=== PATIENT | female | born 1945 | race African-American/Black ===

== ENCOUNTER 2024-05-13 10:38 | Emergency (ER) | payer BC ==
[~2024-05-13] VITALS: Ht 170.2 cm; Wt 75.0 kg
[2024-05-13 10:55] VITALS: O2SAT 98
[2024-05-13 11:30] LABS: CLARITY URINE CLEAR (CLEAR); COLOR URINE YELLOW (YELLOW); GLUCOSE URINE NEGATIVE (NEGATIVE); KETONES URINE NEGATIVE (NEGATIVE); LEUKOCYTE ESTERASE URINE NEGATIVE (NEGATIVE); NITRITE URINE NEGATIVE (NEGATIVE); OCCULT BLOOD URINE NEGATIVE (NEGATIVE); PH URINE 6.5 (4.5-8.0); PROTEIN URINE NEGATIVE (NEGATIVE); SPECIFIC GRAVITY URINE 1.025 (1.005-1.030)
[2024-05-13] MEDS ORDERED: ESTR42.510 VG (15:49)
[2024-05-13 16:12] VITALS: BP 112/65; PULSE 74; RESP 18; O2SAT 98
== END 2024-05-13 16:13 | disposition home or self-care (01) ==
LOC: ER 10:38
DX: N95.2 Postmenopausal atrophic vaginitis (principal); I10 Essential (primary) hypertension
CPT/HCPCS: 81003; 99283; A4606

== ENCOUNTER 2025-01-13 03:41 | Emergency (ER) | payer BC ==
[~2025-01-13] VITALS: Ht 172.7 cm; Wt 85.0 kg
[~2025-01-13 03:41] MED LIST: ESTR42.510 VG
[2025-01-13 03:52] VITALS: O2SAT 100
[2025-01-13] MEDS: ACETAMINOPHEN 325MG TABLET PO ONE (05:30)
[2025-01-13 05:49] LABS: BASOPHILS % 1.2 % (0.0-2.0); EOSINOPHILS % 4.1 % (0.0-5.0); HEMATOCRIT. 43.3 % (36.0-48.0); HEMOGLOBIN. 14.5 g/dL (12.0-16.0); LYMPHOCYTES % 31.9 % (20.0-50.0); MEAN PLATELET VOLUME 7.2 fl (7.4-10.4); MONOCYTES % 8.8 % (2.0-8.0); NEUTROPHILS % 54.0 % (40.0-76.0); PLATELET 396 x1000/uL (130-400); RED BLOOD CELL COUNT 5.26 mill/uL (4.2-5.4); RED CELL DISTRIBUTION WIDTH 14.2 % (11.6-14.6)
[2025-01-13 05:55] LABS: CREATININE 0.7 mg/dL (0.6-1.0); UREA NITROGEN BLOOD 8 mg/dL (9-23)
[2025-01-13 06:23] LABS: CLARITY URINE CLEAR (CLEAR); COLOR URINE YELLOW (YELLOW); GLUCOSE URINE NEGATIVE (NEGATIVE); KETONES URINE NEGATIVE (NEGATIVE); LEUKOCYTE ESTERASE URINE NEGATIVE (NEGATIVE); NITRITE URINE NEGATIVE (NEGATIVE); OCCULT BLOOD URINE NEGATIVE (NEGATIVE); PH URINE 6.5 (4.5-8.0); PROTEIN URINE NEGATIVE (NEGATIVE); SPECIFIC GRAVITY URINE 1.004 (1.005-1.030); UROBILINOGEN URINE 0.2 E.U./dL (0.2-1.0)
[2025-01-13 07:20] VITALS: BP 135/72; PULSE 61; RESP 20; TEMP 37.1; O2SAT 99
== END 2025-01-13 07:34 | disposition home or self-care (01) ==
LOC: ER 05:29
DX: M54.50 Low back pain, unspecified (principal); I10 Essential (primary) hypertension
CPT/HCPCS: 36415; 74176; 80048; 81003; 85025; 93005; 99284

== ENCOUNTER 2025-02-16 18:54 | Emergency (ER) | payer BC ==
[~2025-02-16] VITALS: Ht 170.2 cm; Wt 82.0 kg
[2025-02-16 18:57] VITALS: TEMP 98.4; O2SAT 98
[2025-02-16 20:38] LABS: BASOPHILS % 1.1 % (0.0-2.0); EOSINOPHILS % 3.4 % (0.0-5.0); HEMATOCRIT. 38.5 % (36.0-48.0); HEMOGLOBIN. 13.1 g/dL (12.0-16.0); LYMPHOCYTES % 35.8 % (20.0-50.0); MEAN PLATELET VOLUME 6.8 fl (7.4-10.4); MONOCYTES % 10.2 % (2.0-8.0); NEUTROPHILS % 49.5 % (40.0-76.0); PLATELET 403 x1000/uL (130-400); RED BLOOD CELL COUNT 4.74 mill/uL (4.2-5.4); RED CELL DISTRIBUTION WIDTH 13.6 % (11.6-14.6)
[2025-02-16 20:46] LABS: CREATININE 0.9 mg/dL (0.6-1.0)
[2025-02-16 20:47] LABS: UREA NITROGEN BLOOD 8 mg/dL (9-23)
[2025-02-16 22:41] LABS: ERYTHROCYTE SEDIMENTATION RATE 2 mm/hr (0-30)
[2025-02-16] MEDS ORDERED: DEXT15DR5 LEFTEYE (23:07)
[2025-02-16] MEDS ORDERED: P50 MT (23:07)
[2025-02-16] MEDS ORDERED: ACYC-58 MT (23:07)
[2025-02-16 23:28] VITALS: BP 119/45; PULSE 62; RESP 18; O2SAT 100
== END 2025-02-17 | disposition home or self-care (01) ==
LOC: ER 18:54
DX: G51.0 Bell's palsy (principal); H57.9 Unspecified disorder of eye and adnexa; I10 Essential (primary) hypertension
CPT/HCPCS: 36415; 80048; 83735; 85025; 85651; 99283